=== PATIENT | male | born 1980 | race Caucasian/White ===

== ENCOUNTER → 2016-05-22 | Outpatient (CLI) | payer OTHER ==
--- NOTE | 2016-05-22 12:26 | US ---
EXAMINATION TYPE: US scrotum with doppler. Grayscale and color Doppler Duplex imaging performed of t karyn scrotum. DATE OF EXAM: 05/22/2016 12:00 PM COMPARISON: NONE CLINICAL HISTORY: US. Edema right testicle x 4 days EXAM MEASUREMENTS: TESTICLES: Right Testicle: 4.2 x 2.4 x 3.8 cm Left Testicle: 5.0 x 2.5 x 3.5 cm EPIDIDYMIS HEAD: Right Epididymis: 1.1 cm Left Epididymis: 1.0 cm Doppler performed to assess for testicular vascularity; good bilateral color flow and waveforms are s een. There is no evidence of testicular torsion. Presence of hydroceles: no Presence of varicoceles: yes, lateral to bilateral testes IMPRESSION: Varicoceles noted lateral to bilateral testes. Scanned within patient's area of edema ( lateral to right testicle) unable to identify any fluid collection or abnormality by ultrasound at th is time
== END | disposition home or self-care (01) ==
LOC: RADUSWWP 10:58
PROVIDERS: ATTEND Family Medicine
DX: I86.1 Scrotal varices (principal); L72.9 Follicular cyst of the skin and subcutaneous tissue, unspecified
CPT/HCPCS: 76870; 93975

== ENCOUNTER 2018-07-25 16:13 | Emergency (ER) | payer OTHER ==
[2018-07-25 16:20] VITALS: BP 134/74; PULSE 125; RESP 20; TEMP 100.1
[2018-07-25] MEDS ORDERED: ACETAMINOPHEN TAB 500 MG TAB PO STA (16:45)
[2018-07-25] MEDS ORDERED: IBUPROFEN 600 MG TAB PO STA (16:45)
[2018-07-25] MEDS ORDERED: OSELTAMIVIR 75 MG CAP PO STA (16:46)
--- NOTE | 2018-07-25 16:54 | ED ---
Fever HPI - General Chief Complaint: Fever Stated Complaint: Possible flu Time Seen by Provider: 07/25/18 16:30 Source: patient, RN notes reviewed, old records reviewed Mode of arrival: ambulatory Limitations: no limitations - History of Present Illness Initial Comments: Patient is a 38-year-old male who presents return today with fever chills body aches for one day. He complains of a headache and sinus congestion. Patient states that he has been around multiple people. No close contacts with influenza. She reports is also healthy. He denies any chronic medication use. Patient works as a supervisor [employer].Patient denies any recent fever, chills, shortness of breath, chest pain, back pain, abdominal pain, nausea vomiting, numbness or tingling, dysuria or hematuria, constipation or diarrhea, headaches or visual changes, or any other current symptoms - Related Data Home Medications Medication Instructions Recorded Confirmed Omeprazole [PriLOSEC] 20 mg PO DAILY PRN 04/12/07/25/18 Previous Rx's Medication Instructions Recorded Acetaminophen Tab [Tylenol Tab] 650 mg PO Q6H #20 tablet 07/25/18 Ibuprofen [Motrin] 600 mg PO Q8HR PRN #20 tab 07/25/18 Oseltamivir [Tamiflu] 75 mg PO Q12HR #10 cap 07/25/18 Allergies Allergy/AdvReac Type Severity Reaction Status Date / Time No Known Allergies Allergy Verified 07/25/18 16:25 Review of Systems ROS Statement: Those systems with pertinent positive or pertinent negative responses have been documented in the HPI. ROS Other: All systems not noted in ROS Statement are negative. Past Medical History Past Medical History: GERD/Reflux Additional Past Medical History / Comment(s): RECURRENT PILONIDAL CYSTS History of Any Multi-Drug Resistant Organisms: None Reported Past Surgical History: Tonsillectomy Additional Past Surgical History / Comment(s): BMT X3. LT ELBOW SURGERY X 2. ORIF RT TIB/FIB Past Anesthesia/Blood Transfusion Reactions: Motion Sickness Past Psychological History: No Psychological Hx Reported Smoking Status: Current every day smoker Past Alcohol Use History: Rare Past Drug Use History: None Reported - Past Family History Father Family Medical History: Cancer Mother Family Medical History: Cancer General Exam - General Exam Comments Initial Comments: This is a 38-year-old female. Alert and oriented. Limitations: no limitations General appearance: alert, in no apparent distress Head exam: Present: atraumatic, normocephalic, normal inspection Eye exam: Present: normal appearance, PERRL, EOMI. Absent: scleral icterus, conjunctival injection, periorbital swelling ENT exam: Present: normal exam, mucous membranes moist Neck exam: Present: normal inspection. Absent: tenderness, meningismus, lymphadenopathy Respiratory exam: Present: normal lung sounds bilaterally. Absent: respiratory distress, wheezes, rales, rhonchi, stridor Cardiovascular Exam: Present: regular rate, normal rhythm, normal heart sounds. Absent: systolic murmur, diastolic murmur, rubs, gallop, clicks GI/Abdominal exam: Present: soft, normal bowel sounds. Absent: distended, tenderness, guarding, rebound, rigid Extremities exam: Present: normal inspection, full ROM, normal capillary refill. Absent: tenderness, pedal edema, joint swelling, calf tenderness Back exam: Present: normal inspection Neurological exam: Present: alert, oriented X3, CN II-XII intact Course Vital Signs 07/25/18 16:18 Temperature 100.1 F H Pulse Rate 125 H Respiratory 20 Rate Blood Pressure 134/74 O2 Sat by Pulse 98 Oximetry Medical Decision Making - Medical Decision Making Patient 8-year-old male with 1 day of fever chills and bodyaches. Patient is positive for influenza A. He otherwise denies any significant coughing or congestion. Patient will be discharged with Tylenol and Motrin Tylenol prescription for Tamiflu. Discussed off the Patient is to be off work. Discussed return parameters. - Lab Data Lab Results 07/25/18 Range/Units 16:38 Influenza Type A RNA Detected H (Not Detectd) Influenza Type B (PCR) Not Detected (Not Detectd) Disposition Clinical Impression: Influenza A Disposition: HOME SELF-CARE Condition: Good Instructions (If sedation given, give patient instructions): Influenza (ED) Additional Instructions: Patient advised that close follow-up with primary care physician. Take Tamiflu as prescribed. Motrin and Tylenol every 4 hours. Return to emergency department if any alarming signs or symptoms occur. Prescriptions: Ibuprofen [Motrin] 600 mg PO Q8HR PRN #20 tab PRN Reason: Fever Oseltamivir [Tamiflu] 75 mg PO Q12HR #10 cap Acetaminophen Tab [Tylenol Tab] 650 mg PO Q6H #20 tablet Is patient prescribed a controlled substance at d/c from ED?: No Referrals: Gianna Brower MD [Primary Care Provider] - 1-2 days Time of Disposition: 17:02
== END 2018-07-25 17:20 | disposition home or self-care (01) ==
LOC: EC 16:13
DX: J10.1 Influenza due to other identified influenza virus with other respiratory manifestations (principal); F17.200 Nicotine dependence, unspecified, uncomplicated; Z98.890 Other specified postprocedural states
CPT/HCPCS: 87502; 99284

== ENCOUNTER 2020-08-08 18:39 | Emergency (ER) | payer OTHER ==
[2020-08-08 20:07] VITALS: BP 139/91; PULSE 81; RESP 18; TEMP 98
[2020-08-08] MEDS ORDERED: KETOROLAC 15 MG/ML 1 ML VIAL IM STA (22:17)
--- NOTE | 2020-08-08 22:31 | ED ---
General Adult HPI - General Chief complaint: Extremity Injury, Upper Stated complaint: Armpit pain Time Seen by Provider: 08/08/20 22:02 Source: patient, RN notes reviewed Mode of arrival: ambulatory Limitations: no limitations - History of Present Illness Initial comments: 40-year-old male with a past medical history of pilonidal cyst, GERD presents to the emergency room for a chief complaint of right armpit pain. Patient reports that he noticed this about 7 days ago. States it is a sharp pain in his armpit. Patient states he only feels the pain with certain movements. States sometimes when he reaches he feels the pain. States when he is driving with his arms close to his side he feels a sharp pain. She is and is released to his back. Patient denies any pain if he is not moving in a certain position. Denies any anterior chest pain. Denies shortness of breath. Denies pain radiating down the arm. Denies numbness or tingling in the right hand. Patient does not recall injuring his arm. Patient does not have fevers.Patient has no other complaints at this time including shortness of breath, chest pain, abdominal pain, nausea or vomiting, headache, or visual changes. - Related Data Home Medications Medication Instructions Recorded Confirmed Omeprazole [PriLOSEC] 20 mg PO DAILY PRN 04/12/14 07/25/18 Previous Rx's Medication Instructions Recorded Acetaminophen Tab [Tylenol Tab] 650 mg PO Q6H #20 tablet 07/25/18 Ibuprofen [Motrin] 600 mg PO Q8HR PRN #20 tab 07/25/18 Oseltamivir [Tamiflu] 75 mg PO Q12HR #10 cap 07/25/18 Allergies Allergy/AdvReac Type Severity Reaction Status Date / Time No Known Allergies Allergy Verified 08/08/20 20:07 Review of Systems ROS Statement: Those systems with pertinent positive or pertinent negative responses have been documented in the HPI. ROS Other: All systems not noted in ROS Statement are negative. Past Medical History Past Medical History: GERD/Reflux Additional Past Medical History / Comment(s): RECURRENT PILONIDAL CYSTS History of Any Multi-Drug Resistant Organisms: None Reported Past Surgical History: Tonsillectomy Additional Past Surgical History / Comment(s): BMT X3. LT ELBOW SURGERY X 2. ORIF RT TIB/FIB Past Anesthesia/Blood Transfusion Reactions: Motion Sickness Past Psychological History: No Psychological Hx Reported Smoking Status: Current every day smoker Past Alcohol Use History: Rare Past Drug Use History: None Reported - Past Family History Father Family Medical History: Cancer Mother Family Medical History: Cancer General Exam Limitations: no limitations General appearance: alert, in no apparent distress Head exam: Present: atraumatic, normocephalic, normal inspection Eye exam: Present: normal appearance, PERRL, EOMI. Absent: scleral icterus, conjunctival injection, periorbital swelling ENT exam: Present: normal exam, mucous membranes moist Neck exam: Present: normal inspection, full ROM. Absent: tenderness, meningismus, lymphadenopathy Respiratory exam: Present: normal lung sounds bilaterally. Absent: respiratory distress, wheezes, rales, rhonchi, stridor Cardiovascular Exam: Present: regular rate, normal rhythm, normal heart sounds. Absent: systolic murmur, diastolic murmur, rubs, gallop, clicks Extremities exam: Present: normal inspection, full ROM (Full range of motion of the right upper extremity including the right shoulder), normal capillary refill (Capillary refill less than 2 seconds, radial pulse 2+ in the right upper extremity), other (No signs of infection, abscess, cellulitis of the right axilla. Patient has pain with certain movements such as full flexion and abduction of the shoulder). Absent: tenderness (No significant tenderness noted to the right axilla.), pedal edema, joint swelling, calf tenderness Course Vital Signs 08/08/20 20:04 Temperature 98.0 F Pulse Rate 81 Respiratory 18 Rate Blood Pressure 139/91 O2 Sat by Pulse 98 Oximetry Medical Decision Making - Medical Decision Making Vitals are stable. Patient well-appearing. Patient presents for reproducible axilla pain. Neurovascular status intact in the right upper extremity. No signs of infection or abscess in the right axilla. X-rays were obtained of the chest and shoulder which were negative. At this time likely is soft tissue or musculoskeletal pain causing right axillary pain. He is stable to follow up with his primary care provider. He will return here for any worsening symptoms. Disposition Clinical Impression: Pain in right axilla Disposition: HOME SELF-CARE Condition: Good Instructions (If sedation given, give patient instructions): Arm Pain (ED) Additional Instructions: Please take Motrin and Tylenol. Follow-up with your doctor in one to 2 days. Return to the emergency room for any worsening symptoms. Is patient prescribed a controlled substance at d/c from ED?: No Referrals: Gianna Brower MD [Primary Care Provider] - 1-2 days Time of Disposition: 22:31
--- NOTE | 2020-08-08 22:39 | XR ---
EXAMINATION TYPE: XR chest 1V portable DATE OF EXAM: 08/08/2020 COMPARISON: NONE HISTORY: Chest pain TECHNIQUE: Single view FINDINGS: Heart and mediastinum are normal. Lungs are clear. Diaphragm is normal. Bony thorax is inta ct. IMPRESSION: Normal chest.
--- NOTE | 2020-08-08 22:44 | XR ---
EXAMINATION TYPE: XR shoulder complete RT DATE OF EXAM: 08/08/2020 COMPARISON: NONE HISTORY: Arm. Pain TECHNIQUE: 3 views FINDINGS: I see no fracture nor dislocation. Joint spaces are fairly normal. There is no pathologic c alcification at the greater tuberosity. IMPRESSION: Negative right shoulder exam.
== END 2020-08-08 23:01 | disposition home or self-care (01) ==
LOC: EC 18:39
DX: M79.621 Pain in right upper arm (principal); K21.9 Gastro-esophageal reflux disease without esophagitis; F17.200 Nicotine dependence, unspecified, uncomplicated
CPT/HCPCS: 71045; 96372; 99283

== ENCOUNTER 2022-05-18 15:13 | Emergency (ER) | payer SELFPAY ==
--- NOTE | 2022-05-18 15:31 | ED ---
General Adult HPI <Anthony Grant - Last Filed: 05/18/22 15:31> <Alee Nelson - Last Filed: 05/18/22 23:29> - General Stated complaint: Headaches - History of Present Illness Initial comments: Dictation was produced using [employer] dictation software. please excuse any grammatical, word or spelling errors. Medical screening exam: 42-year-old male presents emergency department for a daily headache for most one week. States he has no history of headaches. He locates the symptoms as a gnawing sensation at his left periorbital retro- orbital area. Patient states that his symptoms seem to be little worse at night. His symptoms have been increasing in intensity and duration. Denies any rhinorrhea. No facial congestion or nasal congestion. Denies any numbness or paresthesias. No vision loss. Patient is well-appearing and bedside. No acute distress. Non-gait ataxia. (Anthony Grant) Upon further questioning patient does admit to mild left facial/left nasal congestion for the past 2 weeks. (Alee Nelson) - Related Data Home Medications Medication Instructions Recorded Confirmed Omeprazole [PriLOSEC] 20 mg PO DAILY PRN 04/12/14 07/25/18 Previous Rx's Medication Instructions Recorded Acetaminophen Tab [Tylenol Tab] 650 mg PO Q6H #20 tablet 07/25/18 Ibuprofen [Motrin] 600 mg PO Q8HR PRN #20 tab 07/25/18 Oseltamivir [Tamiflu] 75 mg PO Q12HR #10 cap 07/25/18 Amoxic-Pot Clav 875-125Mg 1 tab PO Q12HR 10 Days #20 tab 05/18/22 [Augmentin 875-125] Allergies Allergy/AdvReac Type Severity Reaction Status Date / Time No Known Allergies Allergy Verified 08/08/20 20:07 Review of Systems ROS Other: All systems not noted in ROS Statement are negative. <Anthony Grant - Last Filed: 05/18/22 15:31> ROS Other: All systems not noted in ROS Statement are negative. <Alee Nelson - Last Filed: 05/18/22 23:29> ROS Statement: Those systems with pertinent positive or pertinent negative responses have been documented in the HPI. Past Medical History Past Medical History: GERD/Reflux Additional Past Medical History / Comment(s): RECURRENT PILONIDAL CYSTS History of Any Multi-Drug Resistant Organisms: None Reported Past Surgical History: Tonsillectomy Additional Past Surgical History / Comment(s): BMT X3. LT ELBOW SURGERY X 2. ORIF RT TIB/FIB Past Anesthesia/Blood Transfusion Reactions: Motion Sickness Past Psychological History: No Psychological Hx Reported Smoking Status: Current every day smoker Past Alcohol Use History: Rare Past Drug Use History: None Reported - Past Family History Father Family Medical History: Cancer Mother Family Medical History: Cancer <Anthony Grant - Last Filed: 05/18/22 15:31> General Exam General appearance: alert, in no apparent distress Head exam: Present: atraumatic, normocephalic, normal inspection Eye exam: Present: normal appearance, PERRL, EOMI. Absent: scleral icterus, conjunctival injection, periorbital swelling Respiratory exam: Present: normal lung sounds bilaterally. Absent: respiratory distress, wheezes, rales, rhonchi, stridor Cardiovascular Exam: Present: regular rate, normal rhythm, normal heart sounds. Absent: systolic murmur, diastolic murmur, rubs, gallop, clicks Neurological exam: Present: alert, oriented X3, CN II-XII intact Psychiatric exam: Present: normal affect, normal mood Skin exam: Present: warm, dry, intact, normal color. Absent: rash <Alee Nelson - Last Filed: 05/18/22 23:29> Course Vital Signs 05/18/22 05/18/22 15:41 17:22 Temperature 97.7 F Pulse Rate 100 95 Respiratory 20 18 Rate Blood Pressure 156/110 141/86 O2 Sat by Pulse 98 96 Oximetry Medical Decision Making - Lab Data Result diagrams: 05/18/22 16:18 05/18/22 16:18 <Alee Nelson - Last Filed: 05/18/22 23:29> - Medical Decision Making Was pt. sent in by a medical professional or institution (, PA, GOSPEL SINGER, urgent care, hospital, or skilled nursing...) When possible be specific @ -[No] Did you speak to anyone other than the patient for history (EMS, parent, family, police, friend...)? What history was obtained from this source @ -[No] Did you review nursing and triage notes (agree or disagree)? Why? @ -[I reviewed and agree with nursing and triage notes] Were old charts reviewed (outside hosp., previous admission, EMS record, old EKG, old radiological studies, urgent care reports/EKG's, skilled nursing records)? Report findings @ -[No old charts were reviewed] Differential Diagnosis (chest pain, altered mental status, abdominal pain women, abdominal pain men, vaginal bleeding, weakness, fever, dyspnea, syncope, headache, dizziness, GI bleed, back pain, seizure, CVA, palpatations, mental health)? @ Migraine, tension, cluster, carbon monoxide, central venous thrombosis, p ension karma temporal arteritis, acute closure glaucoma, intercranial hemorrhage, mastoiditis, sinusitis, head injury, this is not meant to be an all- inclusive list. EKG interpreted by me (3pts min.). @ -[As above] X-rays interpreted by me (1pt min.). @ -[None done] CT interpreted by me (1pt min.). @ CT brain shows moderate sinusitis involving left sided maxillary, ethmoid, and frontal sinus. No acute intracranial abnormality U/S interpreted by me (1pt. min.). @ -[None done] What testing was considered but not performed or refused? (CT, X-rays, U/S, labs)? Why? @ -[None] What meds were considered but not given or refused? Why? @ -[None] Did you discuss the management of the patient with other professionals (professionals i.e. , PA, GOSPE[employer] SINGER, lab, RT, psych nurse, foster care social worker, production welding supervisor, teacher, sailing officer, disability case manager)? Give summary @ -[No] Was smoking cessation discussed for >3mins.? @ -[No] Was critical care preformed (if so, how long)? @ -[No] Were there social determinants of health that impacted care today? How? (Home lessness, low income, unemployed, alcoholism, drug addiction, transportation, low edu. Level, literacy, decrease access to med. care, group home, rehab)? @ -[No] Was there de-escalation of care discussed even if they declined (Discuss DNR or withdrawal of care, Hospice)? DNR status @ -[No] What co-morbidities impacted this encounter? (DM, HTN, Smoking, COPD, CAD, Cancer, CVA, ARF, Chemo, Hep., AIDS, mental health diagnosis, sleep apnea, morbid obesity)? @ -[None] Was patient admitted / discharged? Hospital course, mention meds given and route, prescriptions, significant lab abnormalities, going to OR and other pertinent info. @ -This is a 42 year old presenting with headache behind left eye. CT of the brain shows moderate sinusitis of the left maxillary,ethmoid, and frontal sinus. No acute intracranial abnormality. Patient will be treated for acute sinusitis of possible bacterial origin. First dose of augmentin given in the ED. Headache improved after headache cocktail. Patient to follow up with primary care provider. Undiagnosed new problem with uncertain prognosis? @ -[No] Drug Therapy requiring intensive monitoring for toxicity (Heparin, Nitro, Insulin, Cardizem)? @ -[No] Were any procedures done? @ -[No] Diagnosis/symptom? @ -Acute sinusitis Acute, or Chronic, or Acute on Chronic? @ -acute Uncomplicated (without systemic symptoms) or Complicated (systemic symptoms)? @ -uncomplicated Side effects of treatment? @ -[No] Exacerbation, Progression, or Severe Exacerbation? @ -[No] Poses a threat to life or bodily function? How? (Chest pain, USA, VT, pneumonia, PE, COPD, DKA, ARF, appy, cholecystitis, CVA, Diverticulitis, Homicidal, Suicidal, threat to staff... and all critical care pts) @ -[No] Dr. Grant is my attending. (Alee Nelson) - Lab Data Lab Results 05/18/22 05/18/22 05/18/22 Range/Units 16:18 16:18 16:18 WBC 11.9 H (3.8-10.6) k/uL RBC 4.98 (4.30-5.90) m/uL Hgb 16.1 (13.0-17.5) gm/dL Hct 47.1 (39.0-53.0) % MCV 94.6 (80.0-100.0) fL MCH 32.4 (25.0-35.0) pg MCHC 34.2 (31.0-37.0) g/dL RDW 13.3 (11.5-15.5) % Plt Count 299 (150-450) k/uL MPV 7.4 Neutrophils % 67 % Lymphocytes % 24 % Monocytes % 6 % Eosinophils % 2 % Basophils % 1 % Neutrophils # 7.9 H (1.3-7.7) k/uL Lymphocytes # 2.8 (1.0-4.8) k/uL Monocytes # 0.7 (0-1.0) k/uL Eosinophils # 0.3 (0-0.7) k/uL Basophils # 0.1 (0-0.2) k/uL Sodium 140 (137-145) mmol/L Potassium 4.4 (3.5-5.1) mmol/L Chloride 103 (98-107) mmol/L Carbon Dioxide 28 (22-30) mmol/L Anion Gap 9 mmol/L BUN 12 (9-20) mg/dL Creatinine 0.74 (0.66-1.25) mg/dL Est GFR (CKD-EPI)AfAm >90 (>60 ml/min/1.73 sqM) Est GFR (CKD-EPI)NonAf >90 (>60 ml/min/1.73 sqM) Glucose 88 (74-99) mg/dL Calcium 9.5 (8.4-10.2) mg/dL Influenza Type A (PCR) Not Detected (Not Detectd) Influenza Type B (PCR) Not Detected (Not Detectd) RSV (PCR) Not Detected (Not Detectd) SARS-CoV-2 (PCR) Not Detected (Not Detectd) Disposition <Anthony Grant - Last Filed: 05/18/22 15:31> Is patient prescribed a controlled substance at d/c from ED?: No <Alee Nelson - Last Filed: 05/18/22 23:29> Clinical Impression: Acute sinusitis, Head ache Disposition: HOME SELF-CARE Condition: Good Instructions (If sedation given, give patient instructions): Sinusitis (ED) Additional Instructions: Take antibiotic as directed. Continue Motrin and Tylenol for pain. Daily Zytrec or Claritin may also help with congestion. Follow-up with primary care provider in one to 2 days. Return to the emergency department experience new vomiting, or worsening symptoms. Prescriptions: Amoxic-Pot Clav 875-125Mg [Augmentin 875-125] 1 tab PO Q12HR 10 Days #20 tab Referrals: Gianna Brower MD [Primary Care Provider] - 1-2 days
[2022-05-18 15:45] VITALS: TEMP 97.7
[2022-05-18] MEDS ORDERED: SODIUM CHLORIDE 0.9% 1,000 ML IV STA (15:52)
[2022-05-18] MEDS ORDERED: METOCLOPRAMIDE 5 MG/ML 2 ML VIAL IVP STA (15:52)
[2022-05-18] MEDS ORDERED: diphenhydrAMINE 50 MG/ML 1 ML VIAL IVP STA (15:52)
[2022-05-18 16:41] LABS: Basophils # (A) 0.1 k/uL (0-0.2); Basophils % (A) 1 %; Eosinophils # (A) 0.3 k/uL (0-0.7); Eosinophils % (A) 2 %; HCT 47.1 % (39.0-53.0); HGB 16.1 gm/dL (13.0-17.5); Lymphocytes # (A) 2.8 k/uL (1.0-4.8); Lymphocytes % (A) 24 %; MCH 32.4 pg (25.0-35.0); MCHC 34.2 g/dL (31.0-37.0); MCV 94.6 fL (80.0-100.0); Mean Platelet Volume 7.4; Monocytes # (A) 0.7 k/uL (0-1.0); Monocytes % (A) 6 %; Neutrophils # (A) 7.9 k/uL (1.3-7.7); Neutrophils % (A) 67 %; Platelet Count 299 k/uL (150-450); RBC 4.98 m/uL (4.30-5.90); RDW 13.3 % (11.5-15.5); WBC 11.9 k/uL (3.8-10.6)
[2022-05-18] MEDS ORDERED: ACETAMINOPHEN TAB 500 MG TAB PO STA (16:44)
--- NOTE | 2022-05-18 17:04 | CT ---
EXAMINATION TYPE: CT brain wo con DATE OF EXAM: 05/18/2022 COMPARISON: None HISTORY: Headache CT DLP: mGycm Automated exposure control for dose reduction was used. Ventricles have normal size. There is no mass effect or midline shift. No sign of intracranial hemorr yazmin. There is relatively dense intracranial arteries and consistent with a high hemoglobin. Calvarium is intact. There is moderate mucosal thickening in the left anterior ethmoid air cells. The re is mucosal moderate thickening in the left maxillary sinus. No evidence of orbital mass. There is left-sided frontal sinus mucosal thickening. IMPRESSION: There is moderate sinusitis involving left side maxillary ethmoid and frontal sinus. No acute intracr anial abnormality.
[2022-05-18 17:14] LABS: African American GFR (CKD) >90 (>60 ml/min/1.73 sqM); Anion Gap 9 mmol/L; Blood Urea Nitrogen 12 mg/dL (9-20); Calcium 9.5 mg/dL (8.4-10.2); Carbon Dioxide 28 mmol/L (22-30); Chloride 103 mmol/L (98-107); Glucose 88 mg/dL (74-99); Non-African American GFR(CKD) >90 (>60 ml/min/1.73 sqM); Potassium 4.4 mmol/L (3.5-5.1); Sodium 140 mmol/L (137-145)
[2022-05-18 17:23] VITALS: BP 141/86; PULSE 95; RESP 18
[2022-05-18] MEDS ORDERED: AMOXIC-POT CLAV 875-125MG 1 EACH TAB PO STA (17:33)
[2022-05-18] MEDS ORDERED: AMOXIC-POT CLAV 875MG STARTER PACK 2 TAB BTL PO STA (18:06)
== END 2022-05-18 18:12 | disposition home or self-care (01) ==
LOC: EC 15:13
DX: J01.90 Acute sinusitis, unspecified (principal); J32.2 Chronic ethmoidal sinusitis; K21.9 Gastro-esophageal reflux disease without esophagitis; F17.200 Nicotine dependence, unspecified, uncomplicated; Z79.899 Other long term (current) drug therapy; Z20.822 Contact with and (suspected) exposure to COVID-19
CPT/HCPCS: 36415; 80048; 85025; 87636; 70450; 99284; 96374; 96375; 96361; J1200; J2765